=== PATIENT | male | born 1975 | race African-American/Black ===

== ENCOUNTER 2018-03-18 04:01 | Emergency (ER) | payer MEDICAID ==
[~2018-03-18] VITALS: Ht 182.9 cm; Wt 63.6 kg
[2018-03-18] MEDS ORDERED: IBUPROFEN 600MG TABLET PO ONE (07:15)
[2018-03-18 08:00] VITALS: BP 110/61
== END 2018-03-18 08:03 | disposition home or self-care (01) ==
LOC: ER 04:28
DX: S16.1XXA Strain of muscle, fascia and tendon at neck level, initial encounter (principal); V49.40XA Driver injured in collision with unspecified motor vehicles in traffic accident, initial encounter; Y93.89 Activity, other specified; Y92.89 Other specified places as the place of occurrence of the external cause
CPT/HCPCS: 99283

== ENCOUNTER 2018-03-20 18:53 | Emergency (ER) | payer MEDICAID ==
[~2018-03-20] VITALS: Ht 182.9 cm; Wt 86.0 kg
[2018-03-20 19:01] VITALS: BP 150/100
== END 2018-03-20 22:31 | disposition home or self-care (01) ==
LOC: ER 19:01
DX: M54.2 Cervicalgia (principal); Z87.828 Personal history of other (healed) physical injury and trauma
CPT/HCPCS: 99281